=== PATIENT | female | born 1960 | race Caucasian/White ===

== ENCOUNTER 2018-08-11 15:58 | Emergency (ER) | payer OTHER, SELFPAY ==
[2018-08-11 16:39] LABS: Absolute Lymphocytes (CBC) 2.6 K/uL (0.7-4.9); Absolute Monocytes 0.4 K/uL (0.1-1.3); Absolute Neutrophil 3.8 K/uL (1.8-8.0); Basophils % 1.2 % (0-1.3); Eosinophils % 2.4 % (0-4.4); Lymphocytes % 37.1 % (15.3-44.8); Monocytes % 5.9 % (3.3-12.3); RBC Red Blood Cell Count 4.42 M/uL (3.86-4.86)
[2018-08-11 16:43] LABS: Protime INR 1.02
--- NOTE | 2018-08-11 16:46 | RAD REPORT ---
EXAM DESCRIPTION: CT - Head Brain Wo Cont - 08/11/2018 4:33 pm CLINICAL HISTORY: Seizure COMPARISON: CT head June 2007 TECHNIQUE: Axial 5 mm thick images of the head were obtained without IV contrast. All CT scans are performed using dose optimization technique as appropriate and may include automated exposure control or mA/KV adjustment according to patient size. FINDINGS: No intracranial hemorrhage, mass, edema or shift of mid-line structures. No acute infarcti on changes seen. No abnormal extra-axial fluid collections. Ventricles are normal. Mastoid air cells are clear. Mucosal thickening in the right maxillary sinus is present without air-f luid level. No acute bony findings. IMPRESSION: Negative noncontrast CT head for acute or significant finding. Right maxillary sinus mucosal thickening without air-fluid level.
[2018-08-11 16:48] LABS: ALT/SGPT 20 U/L (12-78); AST/SGOT 16 U/L (15-37); Albumin 3.2 g/dL (3.4-5.0); Alkaline Phosphatase 126 U/L (45-117); BUN Blood Urea Nitrogen 5 mg/dL (7-18); Bicarbonate 26 mmol/L (21-32); Bilirubin Direct < 0.1 mg/dL (0-0.2); Bilirubin Total 0.1 mg/dL (0.2-1.0); Glucose Level 118 mg/dL (74-106); Potassium 3.3 mmol/L (3.5-5.1); Protein, Total 6.7 g/dL (6.4-8.2); Sodium Level 143 mmol/L (136-145)
[2018-08-11] MEDS ORDERED: POTASSIUM CL SA 10 MEQ TAB PO ONE (17:34)
[2018-08-11 17:40] LABS: Urine Blood 1+ (NEG); Urine Glucose NEGATIVE (NEG); Urine Protein NEGATIVE (NEG); Urine pH 6.5 (5.0-7.0)
[2018-08-11 17:52] LABS: Barbiturates NEGATIVE (NEGATIVE); Benzodiazepines NEGATIVE (NEGATIVE); Cocaine NEGATIVE (NEGATIVE); METHAMPHETAM NEGATIVE (NEGATIVE); Methadone NEGATIVE (NEGATIVE); Opiates NEGATIVE (NEGATIVE); Phencyclidine NEGATIVE (NEGATIVE); THC Cannibis NEGATIVE (NEGATIVE)
--- NOTE | 2018-08-11 18:25 | ER ---
Nurse's Notes [facility] Name: Khadra Prescott Age: 57 yrs Sex: Female : 1960 Arrival Date: 08/11/2018 Time: 15:59 Bed 7 Private MD: Diagnosis: Seizure Presentation: 08/11 16:00 Presenting complaint: EMS states: Pt had witnessed sz at home for about 3 minutes, has la1 had one seizure in the past when she was withdrawing from her meds but she has not been on any lately. Pt was not post ictal on arrival. Pt currently awake, alert, oriented x4. Transition of care: patient was not received from another setting of care. Onset of symptoms was August 11, 2018. Risk Assessment: Do you want to hurt yourself or someone else? Patient reports no desire to harm self or others. Initial Sepsis Screen: Does the patient meet any 2 criteria? No. Patient's initial sepsis screen is negative. Does the patient have a suspected source of infection? No. Patient's initial sepsis screen is negative. Care prior to arrival: None. 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 - Social history:: Smoking status: Patient uses tobacco products, smokes one pack cigarettes per day. - Ebola Screening: : No symptoms or risks identified at this time. Screenin:05 Abuse screen: Denies threats or abuse. Denies injuries from another. Nutritional ca1 screening: No deficits noted. Tuberculosis screening: No symptoms or risk factors identified. Fall Risk Secondary diagnosis (15 points) seizures. Assessment: 16:05 General: Appears in no apparent distress. unkempt, Behavior is calm, cooperative, ca1 appropriate for age. Pain: Denies pain. Neuro: Level of Consciousness is awake, alert, obeys commands, Oriented to person, place, time, situation. Cardiovascular: Heart tones S1 S2 Capillary refill < 3 seconds Patient's skin is warm and dry. Respiratory: Airway is patent Respiratory effort is even, unlabored, Respiratory pattern is regular, symmetrical, Breath sounds are clear bilaterally. GI: Abdomen is round non-distended, Bowel sounds present X 4 quads. Abd is soft and non tender X 4 quads. Reports foreign body sensation down the throat. : No signs and/or symptoms were reported regarding the genitourinary system. EENT: No signs and/or symptoms were reported regarding the EENT system. Derm: Skin is intact, is healthy with good turgor, Skin is pink, warm \T\ dry. Musculoskeletal: Capillary refill < 3 seconds. 16:53 Reassessment: Patient appears in no apparent distress at this time. Patient and/or ca1 family updated on plan of care and expected duration. Pain level reassessed. Patient is alert, oriented x 3, equal unlabored respirations, skin warm/dry/pink. 17:53 Reassessment: Patient appears in no apparent distress at this time. Patient and/or ca1 family updated on plan of care and expected duration. Pain level reassessed. Patient is alert, oriented x 3, equal unlabored respirations, skin warm/dry/pink. Vital Signs: 16:02 BP 119 / 77; Pulse 89; Resp 18; Temp 98.7; Pulse Ox 98% on R/A; Weight 68.04 kg; Height la1 5 ft. 7 in. (170.18 cm); 16:53 BP 115 / 76; Pulse 76; Resp 17; Pulse Ox 95% on R/A; ca1 17:53 BP 111 / 73; Pulse 66; Resp 16; Pulse Ox 98% on R/A; ca1 16:02 Body Mass Index 23.49 (68.04 kg, 170.18 cm) la1 Hood Coma Score: 16:00 Eye Response: spontaneous(4). Verbal Response: oriented(5). Motor Response: obeys ca1 commands(6). Total: 15. 16:31 Eye Response: spontaneous(4). Verbal Response: oriented(5). Motor Response: obeys jr8 commands(6). Total: 15. ED Course: 15:59 Patient arrived in ED. la1 16:00 Christiano Turner PA is PHCP. jr8 16:01 Sen Jordan MD is Attending Physician. jr8 16:02 Triage completed. la1 16:02 Arm band placed on left wrist. la1 16:05 Patient has correct armband on for positive identification. Placed in gown. Bed in low ca1 position. Call light in reach. Side rails up X2. Seizure precautions initiated. monitoring manager on. Pulse ox on. NIBP on. Door closed. Noise minimized. Warm blanket given. 16:15 EKG done, by ED staff, reviewed by Christiano CONNORS. jb1 16:15 Maintain EMS IV. Dressing intact. Good blood return noted. Site clean \T\ dry. Gauge \T\ ca 1 site: g20 at . 16:23 Mariah Rome, RN is Primary Nurse. ca1 16:31 CT completed. Patient moved to CT via stretcher. Patient moved back from SD. bq 17:32 Urine collected: clean catch specimen, cloudy, [place] colored. jb1 18:22 Wilian Payne MD is Referral Physician. jr8 18:30 No provider procedures requiring assistance completed. ca1 18:30 IV discontinued, intact, bleeding controlled, No redness/swelling at site. Pressure ca1 dressing applied. Administered Medications: 17:15 Drug: Potassium Chloride 20 mEq Route: PO; ca1 18:15 Follow up: Response: No adverse reaction ca1 Outcome: 18:22 Discharge ordered by . jr8 18:36 Discharged to home ambulatory, with family. ca1 18:36 Condition: stable 18:36 Discharge instructions given to patient, family, Instructed on discharge instructions, follow up and referral plans. Demonstrated understanding of instructions, follow-up care. 18:36 Patient left the ED. ca1 Signatures: Charles Huggins jb1 Roxana Ledesma Josh, PA PA jr8 Walter Cristina, CHRISSY RN la1 Mariah Rome, CHRISSY RN ca1
--- NOTE | 2018-08-11 18:25 | EDPHYS ---
Physician Documentation [facility] Name: Khadra Prescott Age: 57 yrs Sex: Female : 1960 Arrival Date: 08/11/2018 Time: 15:59 Bed 7 Private MD: ED Physician Sen Jordan HPI: 08/11 16:31 This 57 yrs old Female presents to ER via EMS with complaints of Probable jr8 Seizure. 16:31 The patient presents after having a single isolated seizure, that lasted 2 minute(s). jr8 Character of seizure(s): Loss of consciousness: the patient experienced loss of consciousness, Motor activity: generalized, shaking all over, Incontinence: none, Apnea: the patient did not experience apnea, Circulation: the patient did not experience evidence of pulse disturbance, Eye movements: are unknown. Seizure onset: just prior to arrival. Context: the seizure(s) was witnessed, by family, occurred at home, occurred while the patient was at rest, Contributing factors: Sleep deprived. Has been on off of xanax 2 mg bars for about one week after being on them continuously for a while . Seizure Hx: one other seizure in past due to benzodiazepine withdrawal . The patient has experienced a previous episode. The patient has not recently seen a physician. 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 - Social history:: Smoking status: Patient uses tobacco products, smokes one pack cigarettes per day. - Ebola Screening: : No symptoms or risks identified at this time. ROS: 16:31 Eyes: Negative for injury, pain, redness, and discharge, ENT: Negative for injury, jr8 pain, and discharge, Neck: Negative for injury, pain, and swelling, Cardiovascular: Negative for chest pain, palpitations, and edema, Respiratory: Negative for shortness of breath, cough, wheezing, and pleuritic chest pain, Abdomen/GI: Negative for abdominal pain, nausea, vomiting, diarrhea, and constipation, Back: Negative for injury and pain, MS/Extremity: Negative for injury and deformity, Skin: Negative for injury, rash, and discoloration. 16:31 Neuro: Positive for seizure activity. Exam: 16:31 Constitutional: This is a well developed, well nourished patient who is awake, alert, jr8 and in no acute distress. Head/Face: Normocephalic, atraumatic. Eyes: Pupils equal round and reactive to light, extra-ocular motions intact. Lids and lashes normal. Conjunctiva and sclera are non-icteric and not injected. Cornea within normal limits. Periorbital areas with no swelling, redness, or edema. ENT: Nares patent. No nasal discharge, no septal abnormalities noted. Tympanic membranes are normal and external auditory canals are clear. Oropharynx with no redness, swelling, or masses, exudates, or evidence of obstruction, uvula midline. Mucous membranes moist. Neck: Trachea midline, no thyromegaly or masses palpated, and no cervical lymphadenopathy. Supple, full range of motion without nuchal rigidity, or vertebral point tenderness. No Meningismus. Cardiovascular: Regular rate and rhythm with a normal S1 and S2. No gallops, murmurs, or rubs. Normal PMI, no JVD. No pulse deficits. Respiratory: Lungs have equal breath sounds bilaterally, clear to auscultation and percussion. No rales, rhonchi or wheezes noted. No increased work of breathing, no retractions or nasal flaring. Abdomen/GI: Soft, non-tender, with normal bowel sounds. No distension or tympany. No guarding or rebound. No evidence of tenderness throughout. Back: No spinal tenderness. No costovertebral tenderness. Full range of motion. Skin: Warm, dry with normal turgor. Normal color with no rashes, no lesions, and no evidence of cellulitis. MS/ Extremity: Pulses equal, no cyanosis. Neurovascular intact. Full, normal range of motion. Neuro: Awake and alert, GCS 15, oriented to person, place, time, and situation. Cranial nerves II-XII grossly intact. Motor strength 5/5 in all extremities. Sensory grossly intact. Cerebellar exam normal. Normal gait. Vital Signs: 16:02 BP 119 / 77; Pulse 89; Resp 18; Temp 98.7; Pulse Ox 98% on R/A; Weight 68.04 kg; Height la1 5 ft. 7 in. (170.18 cm); 16:53 BP 115 / 76; Pulse 76; Resp 17; Pulse Ox 95% on R/A; ca1 17:53 BP 111 / 73; Pulse 66; Resp 16; Pulse Ox 98% on R/A; ca1 16:02 Body Mass Index 23.49 (68.04 kg, 170.18 cm) la1 Hood Coma Score: 16:00 Eye Response: spontaneous(4). Verbal Response: oriented(5). Motor Response: obeys ca1 commands(6). Total: 15. 16:31 Eye Response: spontaneous(4). Verbal Response: oriented(5). Motor Response: obeys jr8 commands(6). Total: 15. MDM: 16:01 Patient medically screened. jr8 18:21 Data reviewed: vital signs, nurses notes, lab test result(s), EKG, radiologic studies, [facility] CT scan, and as a result, I will discharge patient. Data interpreted: Pulse oximetry: on room air is 98 %. Interpretation: normal. Counseling: I had a detailed discussion with the patient and/or guardian regarding: the historical points, exam findings, and any diagnostic results supporting the discharge/admit diagnosis, lab results, radiology results, the need for outpatient follow up, a family practitioner, a neurologist, to return to the emergency department if symptoms worsen or persist or if there are any questions or concerns that arise at home. Response to treatment: the patient's symptoms have resolved after treatment. ED course: No seizures while in ED care. Will send home with close return precautions and f/u to see FM and neurology . 08/11 16:17 Order name: Acetaminophen 08/11 16:17 Order name: Basic Metabolic Panel 08/11 16:17 Order name: CBC with Diff 08/11 16:17 Order name: ETOH Level [facility] 08/11 16:17 Order name: Hepatic Function [facility] 08/11 16:17 Order name: PT-INR [facility] 08/11 16:17 Order name: Ptt, Activated 08/11 16:17 Order name: Salicylate [facility] 08/11 16:17 Order name: Urine Drug Screen [facility] 08/11 16:41 Order name: CBC with Automated Diff; Complete Time: 16:57 EDMS 08/11 16:47 Order name: Protime (+INR); Complete Time: 16:57 EDMS 08/11 16:47 Order name: PTT, Activated Partial Thromb; Complete Time: 16:57 EDMS 08/11 16:54 Order name: Basic Metabolic Panel; Complete Time: 16:57 EDMS 08/11 16:54 Order name: Liver (Hepatic) Function; Complete Time: 16:57 EDMS 08/11 16:17 Order name: EKG; Complete Time: 16:20 [facility] 08/11 16:17 Order name: EKG - Nurse/Tech; Complete Time: 16:24 jr8 08/11 16:17 Order name: IV Saline Lock; Complete Time: 16:24 8 08/11 16:17 Order name: Labs collected and sent; Complete Time: 16:25 8 08/11 16:17 Order name: Urine Dipstick-Ancillary (obtain specimen); Complete Time: 17:22 8 08/11 16:17 Order name: CT Head Brain wo Cont [facility] 08/11 16:54 Order name: Acetaminophen Level; Complete Time: 16:57 EDMS 08/11 16:54 Order name: Alcohol Serum/Plasma; Complete Time: 16:57 EDMS 08/11 16:55 Order name: CT; Complete Time: 16:57 EDMS 08/11 16:57 Order name: Salicylates Level; Complete Time: 16:58 EDMS 08/11 17:33 Order name: Urine Dipstick--Ancillary (enter results) ms 08/11 17:40 Order name: Urine Dipstick-Ancillary; Complete Time: 17:44 EDMS 08/11 17:52 Order name: Urine Drug Screen; Complete Time: 18:21 EDMS Administered Medications: 17:15 Drug: Potassium Chloride 20 mEq Route: PO; ca1 18:15 Follow up: Response: No adverse reaction ca1 Disposition: 08/11/18 18:22 Discharged to Home. Impression: Seizure . - Condition is Stable. - Discharge Instructions: Nonepileptic Seizures. - Medication Reconciliation Form, Thank You Letter, Antibiotic Education, Prescription Opioid Use form. - Follow up: Wilian Payne MD; When: 5 - 6 days; Reason: Recheck today's complaints, Continuance of care, Re-evaluation by your physician. - Problem is new. - Symptoms have improved. Addendum: 08/13/2018 03:38 Co-signature as Attending Physician, Sen Jordan MD I agree with the assessment and t w4 plan of care. Signatures: Dispatcher [employer] EDChristiano Blanc PA PA jr8 Walter Cristina RN RN la1 Sen Jordan MD MD tw4 Mariah Rome RN RN ca1 Corrections: (The following items were deleted from the chart) 08/11 18:36 18:22 08/11/2018 18:22 Discharged to Home. Impression: Seizure . Condition is Stable. ca1 Forms are Medication Reconciliation Form, Thank You Letter, Antibiotic Education, Prescription Opioid Use. Follow up: Wilian Payne; When: 5 - 6 days; Reason: Recheck today's complaints, Continuance of care, Re-evaluation by your physician. Problem is new. Symptoms have improved. jr8
--- NOTE | 2018-08-12 11:47 | EKG ---
Test Date: 2018-08-11 Test Time: 16:07:56 Temperature Inspector: MIMI MEASUREMENT RESULTS: Intervals: Rate: 75 OK: 124 QRSD: 104 QT: 394 QTc: 439 [place]: P: 61 OK: 124 QRS: 69 T: 55 INTERPRETIVE STATEMENTS: Normal sinus rhythm Nonspecific ST abnormality Abnormal ECG Compared to ECG 07/22/2007 19:10:25 ST (T wave) deviation now present Left ventricular hypertrophy no longer present Prolonged QT interval no longer present Electronically Signed On 08-12-18 11:43:08 [employer] by Ramy High
== END 2018-08-11 18:36 | disposition home or self-care (01) ==
LOC: ER 15:58
DX: R56.9 Unspecified convulsions (principal); F17.210 Nicotine dependence, cigarettes, uncomplicated; Z88.0 Allergy status to penicillin
CPT/HCPCS: 36415; 70450; 80048; 80076; 80307; 80320; 80329; 81003; 85025; 85610; 85730; 93005

== ENCOUNTER 2019-04-03 15:07 | Emergency (ER) | payer SELFPAY ==
--- OUTSIDE RECORDS SUMMARY | 2019-04-03 15:10 | XMS REPORT | Summary of Care ---
:1960 Author Organization [facility] - [facility] Address [address] [place] [address] Care Team Providers Name Role Phone Pcp, Patient Does Not Have A Primary Care Provider Reason for Referral MRI/CAT Scan (STAT) Status Reason Specialty Diagnoses / Referred By Referred To Procedures Contact Contact New Request Diagnostic Diagnoses Generalized abdominal pain [facility] Procedures CT ABDOMEN PELVIS W CONTRAST Dusty Lucero, DO [address] [place] [address] MRI/CAT Scan (STAT) Status Reason Specialty Diagnoses / Referred By Referred To Procedures Contact Contact New Request Diagnostic Diagnoses Generalized abdominal pain [facility] Procedures CT ABDOMEN PELVIS W CONTRAST Nic, Dusty, DO [address] [address] Reason for Visit Reason Comments Abdominal Pain Auth/Cert Status Reason Specialty Diagnoses / Referred By Referred To Procedures Contact Contact Emergency Medicine Ed-Emergency Dept [address] [place] [phone] Encounter Details Date Type Department Care Team Description 03/29/2019 - Emergency [facility], Generalized abdominal pain (Primary Dx); 03/30/2019 Department DO Dusty Vomiting and diarrhea; [address] [place] [address] Colitis; [place] [address] [place] [address] [facility] [phone] Allergies Active Allergy Reactions Severity Noted Date Comments Penicillins Unknown - See comments 03/29/2019 documented as of this encounter (statuses as of 03/30/2019) Medications Medication Sig Dispensed Refills Start Date End Date Status ciprofloxacin HCl 500 Take 1 tablet by 14 tablet 0 03/30/2019 04/06/2019 Active mg tabletIndications: mouth 2 (two) Generalized abdominal times daily for 7 pain days. metroNIDAZOLE 500 mg Take 1 tablet by 14 tablet 0 03/30/2019 04/06/2019 Active tabletIndications: mouth 2 (two) Generalized abdominal times daily for 7 pain days. dicyclomine (BENTYL) Take 1 tablet by 20 tablet 0 03/30/2019 Active 20 mg mouth 4 (four) tabletIndications: times daily as Colitis needed for Abdominal pain. documented as of this encounter (statuses as of 03/30/2019) Active Problems Not on filedocumented as of this encounter (statuses as of 03/30/2019) Social History Tobacco Use Types Packs/Day Years Used Date Never Assessed Sex Assigned at Date Recorded Not on file Job Start Date Occupation Industry Not on file Not on file Not on file Travel History Travel Start Travel End No recent travel history available. documented as of this encounter Last Filed Vital Signs Vital Sign Reading Time Taken Comments Blood Pressure 118/74 03/30/2019 5:17 AM CDT Pulse 68 03/30/2019 5:17 AM CDT Temperature 37.1 C (98.7 F) 03/30/2019 1:20 AM CDT Respiratory Rate 20 03/30/2019 5:17 AM CDT Oxygen Saturation 97% 03/30/2019 5:17 AM CDT Inhaled Oxygen Concentration - - Weight 56.7 kg (125 lb) 03/29/2019 10:51 PM CDT Height - - Body Mass Index - - documented in this encounter Discharge Instructions InstructionsDusty Walsh DO - 03/30/2019DIAGNOSIS 1. Abdominal pain 2. Vomiting and Diarrhea 3. Colitis 4. Uterine prolapse NO LIFE-THREATENING FINDINGS ON TODAY'S EXAM. PROCEDURES IN THE ER TODAY: None MEDICATIONS ADMINISTERED IN THE ER TODAY: Zofran, Morphine, Fluids YOUR PRESCRIPTIONS AND [id number] MEDICATION RECOMMENDATIONS: Zofran, Cipro, Flagyl SPECIAL CARE INSTRUCTIONS: None FOLLOW-UP RECOMMENDATIONS: RECOMMEND FOLLOW-UP WITH A PRIMARY CARE PROVIDER OR SPECIALIST IN 2-5 DAYS, ESPECIALLY IF NO IMPROVEMENT IN SYMPTOMS. TO FOLLOW-UP WITHIN THE [facility], TRY THESE OPTIONS (CLINIC APPOINTMENTS AVAILABLE ON [id number] BASIS): 1. SCHEDULE AN APPOINTMENT ONLINE AT WWW[facility] 2. OR CALL THE [facility] AT OR 3. OR CALL YOUR [facility] PHYSICIAN'S OFFICE DIRECTLY IF YOU ARE ALREADY AN ESTABLISHED [facility] PATIENT. OR, YOU MAY FOLLOW-UP WITH A PROVIDER OF YOUR CHOICE, SUCH : 1. A PHYSICIAN OF YOUR CHOICE 2. [facility], . LOCATIONS IN [facility] 3. [facility], [address], [place]; [phone] RETURN TO ER FOR WORSENING OF SYMPTOMS, INCREASED PAIN, FEVERS, PERSISTENT VOMITING, OR ANY OTHER CONCERNS. AttachmentsThe following attachments cannot be sent through Care Everywhere.Colitis, Understanding (Japanese)documented in this encounter Progress Notes Annita Sosa MD - 03/30/2019 4:45 AM CDTSurgery Chief Note Brief History: Khadra Prescott is a 58 year old female who presented to the ED w/ a 1 mo history of intermittent diarrhea and abdominal pain and 3 day history of vomiting. Pt found to have possibletransient intussusception on CT scan in ED, for which we were consulted. Pertinent Vitals and Physical Exam: BP 115/64 (Patient Position: Supine) | Pulse 69 | Temp 37.1 C (98.7 F) ( Oral) | Resp 20 | Wt56.7 kg (125 lb) | SpO2 96% AAO, NAD Abdomen soft, NT, ND, no rebound, guarding, or peritonitis Pertinent Labs/Imaging: WBC 7.72 IMPRESSION Fluid-filled small bowel, and diffuse colonic hyperdense and edematous bowel wall are consistent with enteritis/colitis. Suspected transient intussusception in the left lower quadrant. Cholecystectomy with reservoir phenomena manifested by common bile duct dilation and left intrahepatic biliary ductal dilation. Anteroinferior uterine prolapse. Assessment/Plan: 58 year old F with enteritis. Intussusception on CT scan likely just transient , and related to enteritis. WBC WNL and non toxic appearing. -- No need for surgical intervention -- Management of enteritis, abdominal pain, etc. As per ED faculty Please see full note by surgery team. Discussed with Dr. Danielle (surgery faculty). Annita Sosa MD PGY-4, General Surgery Pager: documented in this encounter Plan of Treatment Name Type Priority Associated Diagnoses Date/Time CT ABDOMEN PELVIS W IMAGING STAT Generalized abdominal 03/30/2019 3:45 AM CONTRAST pain CDT Health Maintenance Due Date Last Done Comments HEPATITIS C (HCV) SCREEN 1960 DTaP,Tdap,and Td Vaccines (1 - 1981 Tdap) PAP SMEAR 1983 MAMMOGRAM 2002 COLONOSCOPY 2012 Zoster Recombinant Vaccine 2012 (SHINGRIX) (1 of 2) INFLUENZA VACCINE (#1) 2019 PNEUMOCOCCAL 0-64 YEARS COMBINED Aged Out No longer eligible based on SERIES patient's age to complete this topic documented as of this encounter Procedures Procedure Name Priority Date/Time Associated Comments Diagnosis COMP. METABOLIC STAT 03/30/2019 1:58 Generalized Results for this PANEL (63870) AM CDT abdominal pain procedure are in the results section. TEST, STAT Add-On 03/30/2019 1:58 Generalized Results for this SERUM AM CDT abdominal pain procedure are in the results section. CBC WITH STAT 03/30/2019 12:16 Generalized Results for this DIFFERENTIAL AM CDT abdominal pain procedure are in the results section. URINALYSIS STAT 03/30/2019 12:16 Generalized Results for this AM CDT abdominal pain procedure are in the results section. CBC WITH DIFF Routine 03/30/2019 12:16 Generalized Results for this AM CDT abdominal pain procedure are in the results section. LIPASE STAT 03/30/2019 12:16 Generalized Results for this AM CDT abdominal pain procedure are in the results section. POCT TEST Routine 03/29/2019 11:56 Generalized Results for this PM CDT abdominal pain procedure are in the results section. documented in this encounter Results TEST, SERUM (03/30/2019 1:58 AM CDT) PREG SERUM Negative [facility] Specimen Blood - VENOUS Narrative Performed At Less than 10 IU/L.If low titer or ectopic is [facility] suspected, resubmit specimen in 48-72 hours. Performing Organization Address City/State/Zipcode Phone Number [facility] CLIA: [id number], [address] [facility] [place] [address] [phone] [facility] Complete Metabolic Panel (03/30/2019 1:58 AM CDT) NA 139 135 - 145 [facility] mmol/L SERVICES K 3.0 (L) 3.5 - 5.0 [facility] mmol/L SERVICES CL 110 (H) 98 - 108 mmol/L [facility] CO2 TOTAL 24 23 - 31 mmol/L [facility] AGAP 5 2 - 16 [facility] BUN 6 (L) 7 - 23 mg/dL [facility] GLUCOSE 84 70 - 110 mg/dL [facility] CREATININE 0.59 0.50 - 1.04 [facility] mg/dL SERVICES TOTAL BILI 0.3 0.1 - 1.1 mg/dL [facility] CALCIUM 8.2 (L) 8.6 - 10.6 [facility] mg/dL SERVICES T PROTEIN 5.4 (L) 6.3 - 8.2 g/dL [facility] ALBUMIN 3.0 (L) 3.5 - 5.0 g/dL [facility] ALK PHOS 116 34 - 122 U/L [facility] ALT(SGPT) 37 9 - 51 U/L [facility] AST(SGOT) 24 13 - 40 U/L [facility] eGFR Calculation 105.4 mL/min/1.73m2 [facility] (Non- SERVICES Belizean) eGFR Calculation 127.8 mL/min/1.73m2 [facility] () SERVICES Specimen Blood - VENOUS Narrative Performed At Association of Glomerular Filtration Rate (GFR) and Staging [facility] of Kidney Disease* + + + + | GFR (mL/min/1.73 m2)| With Kidney Damage|Without Kidney Damage + + + + |>90|Stage one| Normal + + + + |60-89|Stage two| Decreased GFR + + + + |30-59|Stage three| Stage three + + + + |15-29|Stage four | Stage four + + + + |<15 (or dialysis)|Stage five | Stage five + + + + *Each stage assumes the associated GFR level has been in effect for at least three months.Stages 1 to 5, with or without kidney disease, indicate chronic kidney disease. Notes: Determination of stages one and two (with eGFR >59mL/min/1.73 m2) requires estimation of kidney damage for at least three months as defined by structural or functional abnormalities of the kidney, manifested by either: Pathological abnormalities or Markers of kidney damage (including abnormalities in the composition of the blood or urine or abnormalities in imaging tests). Performing Organization Address City/State/Zipcode Phone Number [facility] CLIA: [id number], [address] [place] [address] [facility] CBC WITH DIFFERENTIAL (03/30/2019 12:16 AM CDT) WBC 7.72 4.30 - 11.10 [facility] 10*3/L SERVICES RBC 4.83 3.93 - 5.25 [facility] 10*6/L SERVICES HGB 15.3 (H) 11.6 - 15.0 [facility] g/dL SERVICES HCT 45.8 (H) 35.7 - 45.2 % [facility] MCV 94.8 80.6 - 95.5 [facility] fL SERVICES MCH 31.7 25.9 - 32.8 [facility] pg SERVICES MCHC 33.4 31.6 - 35.1 [facility] g/dL SERVICES RDW-SD 49.5 39.0 - 49.9 [facility] fL SERVICES RDW-CV 14.2 12.0 - 15.5 % [facility] PLT 227 166 - 358 [facility] 10*3/L SERVICES MPV 11.9 9.5 - 12.9 fL [facility] IPF % 7.2Comment: Platelet 1.3 - 7.7 % [facility] count measured by SERVICES fluorescence method. NRBC/100 WBC 0.0 0.0 - 10.0 [facility] /100 WBCs SERVICES NRBC x10^3 <0.01 10*3/L [facility] GRAN MAT (NEUT) % 58.8 % [facility] IMM GRAN % 1.80 % [facility] LYMPH % 30.3 % [facility] MONO % 6.6 % [facility] EOS % 1.2 % [facility] BASO % 1.3 % [facility] GRAN MAT 4.54 1.88 - 7.09 [facility] x10^3(ANC) 10*3/uL SERVICES IMM GRAN x10^3 0.14 (H) 0.00 - 0.06 [facility] 10*3/uL SERVICES LYMPH x10^3 2.34 1.32 - 3.29 [facility] 10*3/uL SERVICES MONO x10^3 0.51 0.33 - 0.92 [facility] 10*3/uL SERVICES EOS x10^3 0.09 0.03 - 0.39 [facility] 10*3/uL SERVICES BASO x10^3 0.10 (H) 0.01 - 0.07 [facility] 10*3/uL SERVICES Specimen Blood - VENOUS Performing Organization Address [facility] Phone Number [facility] CLIA: [id number], [address] [place] [address] [phone] [facility] Urinalysis (03/30/2019 12:16 AM CDT) APPEARANCE Clear Clear [facility] COLOR Straw (A) Yellow [facility] PH 6.0 4.8 - 8.0 [facility] SP GRAVITY 1.004 1.003 - 1.030 [facility] GLU U QUAL Normal Normal [facility] BLOOD 2+ (A) Negative [facility] KETONES Negative Negative [facility] PROTEIN Negative Negative [facility] UROBILIN Normal Normal [facility] BILIRUBIN Negative Negative [facility] NITRITE Negative Negative [facility] LEUK TASHIA Negative Negative [facility] RBC/HPF 1 0 - 3 HPF [facility] WBC/HPF <1 0 - 5 HPF [facility] BACTERIA Few (A) Negative [facility] SQ EPITH <1 <=2 HPF [facility] Specimen Urine - URINE, CLEAN CATCH Performing Organization Address [facility]/Zipcode Phone Number [facility] CLIA: [id number], [address] [place] [phone] [employer] Lipase, Serum (03/30/2019 12:16 AM CDT) LIPASE 76Comment: Hemolyzed 0 - 220 U/L [facility] specimen SERVICES Specimen Blood - VENOUS Performing Organization Address City/State/Zipcode Phone Number [facility] CLIA: [id number], [address] [place] [address] [phone] [facility] POCT Test (03/29/2019 11:56 PM CDT) POCT PREG negative On board controls acceptable present with C Line POCT PREG LOT # [id number] POCT PREG TEST DATE 01-20-2020 Specimen Urine - URINE, CLEAN CATCH documented in this encounter Visit Diagnoses Diagnosis Generalized abdominal pain - Primary Abdominal pain, generalized Vomiting and diarrhea Vomiting alone Colitis Other and unspecified noninfectious gastroenteritis and colitis Uterine prolapse Uterine prolapse without mention of vaginal wall prolapse documented in this encounter Administered Medications Medication Order MAR Action Action Date Dose Rate Site sodium chloride (NS) injection 5 mL 5 mL, Intravenous, PRN, Starting 03/29/19 at 2315, Until Discontinued, Routine, IV line flushing Medication Order MAR Action Action Date Dose Rate Site iohexol (OMNIPAQUE 350 BULK-150 Given 03/30/2019 3:40 AM CDT 120 mL mL) injection 120 mL 120 mL, Intravenous, ONCE, 1 dose, 03/30/19 at 0400, Routine morpHINE injection 4 mg Given 03/30/2019 12:56 AM CDT 4 mg 4 mg, Slow IV Push, ONCE, 1 dose, 03/30/19 at 0130, STAT ondansetron (ZOFRAN (PF)) injection 4 mg Given 03/30/2019 12:56 AM CDT 4 mg 4 mg, Slow IV Push, ONCE, 1 dose, 03/30/19 at 0130, FAITH documented in this encounter"
--- OUTSIDE RECORDS SUMMARY | 2019-04-03 15:10 | XMS REPORT ---
:1960 [facility] Address [address] [place] [address] Dr. Manley [address] [place] [id number] Care Team Providers Name Role Phone Unavailable Unavailable Unavailable Problems This patient has no known problems. Allergies, Adverse Reactions, Alerts This patient has no known allergies or adverse reactions. Medications This patient has no known medications.
--- NOTE | 2019-04-03 16:09 | RAD REPORT ---
EXAM DESCRIPTION: CT - Head Brain Wo Cont - 04/03/2019 3:49 pm CLINICAL HISTORY: seizure COMPARISON: 07/2018 TECHNIQUE: Computed axial tomography of the head was obtained. IV contrast was not requested. All CT scans are performed using dose optimization technique as appropriate and may include automated exposure control or mA/KV adjustment according to patient size. FINDINGS: An intracranial bleed is not seen . The ventricles are normal in caliber. No extra-axial fluid collection is noted. Fluid within the sinuses/ mastoids is not seen. IMPRESSION: No acute intracranial abnormality is seen. If patient's symptoms persist MRI of the bra in would be recommended.
[2019-04-03 16:10] LABS: Protime INR 0.96
[2019-04-03 16:12] LABS: Absolute Lymphocytes (CBC) 2.6 K/uL (0.7-4.9); Basophils % 1.1 % (0-1.3); Hematocrit 39.1 % (36.0-45.0); Lymphocytes % 33.9 % (15.3-44.8); MPV 10.8 fL (7.6-11.3); RBC Red Blood Cell Count 3.99 M/uL (3.86-4.86)
[2019-04-03 16:16] LABS: ALT/SGPT 22 U/L (12-78); AST/SGOT 18 U/L (15-37); Albumin 3.4 g/dL (3.4-5.0); Alkaline Phosphatase 160 U/L (45-117); BUN Blood Urea Nitrogen 6 mg/dL (7-18); Bicarbonate 26 mmol/L (21-32); Bilirubin Direct < 0.1 mg/dL (0-0.2); Bilirubin Total 0.2 mg/dL (0.2-1.0); Glucose Level 102 mg/dL (74-106); Potassium 3.3 mmol/L (3.5-5.1); Protein, Total 6.4 g/dL (6.4-8.2); Sodium Level 141 mmol/L (136-145)
[2019-04-03] MEDS ORDERED: POTASSIUM CL SA 10 MEQ TAB PO ONE (16:31)
--- NOTE | 2019-04-03 17:24 | ER ---
Nurse's Notes [facility] Name: Khadra Prescott Age: 58 yrs Sex: Female : 1960 Arrival Date: 04/03/2019 Time: 15:16 Bed 24 Private MD: Diagnosis: Laceration without foreign body of scalp;Non epileptic seizure Presentation: 04/03 15:17 Presenting complaint: EMS states: patient had a witnessed seizure at [facility] where she mg2 is working. she was having tonic clonic seizure for 3 min and LOC for 2 mins and combative when she woke up. BGL- 92 mg/dl. she sustained laceration on her scalp and bruise on the right orbit. she had seizure 3 years ago and she is not on maintenance for seizure. Transition of care: patient was not received from another setting of care. Onset of symptoms was April 03, 2019 at 02:30. Risk Assessment: Do you want to hurt yourself or someone else? Patient reports no desire to harm self or others. Initial Sepsis Screen: Does the patient meet any 2 criteria? No. Patient's initial sepsis screen is negative. Does the patient have a suspected source of infection? No. Patient's initial sepsis screen is negative. Care prior to arrival: None. 15:17 Method Of Arrival: EMS: [facility] mg2 15:17 Acuity: MARLENE 3 mg2 Historical: - Allergies: 15:21 PENICILLINS; mg2 - Home Meds: 15:21 Ambien 10 mg Oral tab 1 tab once daily [Active]; gabapentin 300 mg Oral cap 1 cap 3 mg2 times per day [Active]; Lorazepam Oral [Active]; - PMHx: 15:21 Fibromyalgia; Seizures; mg2 - PSHx: 15:21 Tubal ligation; Carpal Tunnel Repair; Cholecystectomy; mg2 - Immunization history:: Flu vaccine status is unknown. - Social history:: Smoking status: Patient uses tobacco products, smokes one pack cigarettes per day. - Ebola Screening: : No symptoms or risks identified at this time. Screenin:23 Abuse screen: Denies threats or abuse. Denies injuries from another. Nutritional mg2 screening: No deficits noted. Tuberculosis screening: No symptoms or risk factors identified. Fall Risk IV access (20 points). Assessment: 15:22 General: Appears in no apparent distress. comfortable, Behavior is calm, cooperative. mg2 Pain: Denies pain. Neuro: Level of Consciousness is awake, alert, obeys commands, Oriented to person, place, time, situation. Cardiovascular: Capillary refill < 3 seconds Patient's skin is warm and dry. Respiratory: Airway is patent Respiratory effort is even, unlabored, Respiratory pattern is regular, symmetrical. GI: No signs and/or symptoms were reported involving the gastrointestinal system. : No signs and/or symptoms were reported regarding the genitourinary system. EENT: No signs and/or symptoms were reported regarding the EENT system. EENT: bruising in the right eye. Derm: Skin is healthy with good turgor, Skin is pink, warm \T\ dry. normal, Wound noted scalp Wound is 1 inch length. Musculoskeletal: Circulation, motion, and sensation intact. Capillary refill < 3 seconds. Vital Signs: 15:20 Weight 58.97 kg; Height 5 ft. 6 in. (167.64 cm); Pain 0/10; mg2 15:40 BP 116 / 74; Pulse 77; Resp 18; Temp 98.6; Pulse Ox 96% on R/A; mg2 16:42 BP 105 / 77; Pulse 63; Resp 18; Pulse Ox 97% on R/A; mg2 17:30 BP 110 / 70; Pulse 69; Resp 18; Temp 98; Pulse Ox 100% on R/A; mg2 15:20 Body Mass Index 20.98 (58.97 kg, 167.64 cm) mg2 ED Course: 15:16 Patient arrived in ED. mg2 15:18 Christiano Turner PA is PHCP. jr8 15:18 Duc De La Cruz MD is Attending Physician. jr8 15:20 Triage completed. mg2 15:22 Arm band placed on. mg2 15:23 Patient has correct armband on for positive identification. campus monitor on. Pulse mg2 ox on. NIBP on. Door closed. 15:24 Walter Smith, CHRISSY is Primary Nurse. mg2 15:38 Radiology exam delayed due to pt getting labs drawn at this time. mw3 15:40 Inserted saline lock: 22 gauge in right forearm, using aseptic technique. Blood mg2 collected. by [place] major case detective. 15:44 EKG done, by maintenance technician. reviewed by Christiano CONNORS. sm3 15:[address] mw3 15:48 CT completed. Patient tolerated procedure well. Patient moved back from CT. mw3 15:50 CT Head Brain wo Cont In Process Unspecified. EDMS 17:43 IV discontinued, intact, bleeding controlled, No redness/swelling at site. Pressure mg2 dressing applied. 17:44 Assist provider with laceration repair on scalp that was 2.5 cm. or less using mazin. mg2 Set up tray. Performed by Christiano CONNORS Patient tolerated well. Administered Medications: 16:31 Drug: Potassium Chloride 20 mEq Route: PO; mg2 17:06 Follow up: Response: No adverse reaction mg2 Outcome: 17:23 Discharge ordered by . danie 17:44 Discharged to home ambulatory, with family. mg2 17:44 Condition: stable 17:44 Discharge instructions given to patient, family, Instructed on discharge instructions, follow up and referral plans. wound care, Demonstrated understanding of instructions, follow-up care, wound care. 17:45 Patient left the ED. mg2 Signatures: Dispatcher [employer] EDTN Christiano Turner PA PA jr8 Walter Smith RN RN mg2 Sondra Brewer 3 Karlee Reagan mw3 Corrections: (The following items were deleted from the chart) 17:44 15:23 No provider procedures requiring assistance completed. mg2 mg2
--- NOTE | 2019-04-03 17:24 | EDPHYS ---
Physician Documentation [facility] Name: Khadra Prescott Age: 58 yrs Sex: Female : 1960 Arrival Date: 04/03/2019 Time: 15:16 Bed 24 Private MD: ED Physician Duc De La Cruz HPI: 04/03 15:31 This 58 yrs old Female presents to ER via EMS with complaints of seizure. jr8 15:31 The patient presents after having a single isolated seizure, that lasted 30 second(s). jr8 Character of seizure(s): Loss of consciousness: the patient experienced loss of consciousness, Motor activity: generalized, Incontinence: none, Apnea: the patient did not experience apnea, Circulation: the patient did not experience evidence of pulse disturbance, Eye movements: are unknown. Seizure onset: just prior to arrival. Context: the seizure(s) was witnessed, by co-worker(s), occurred at work, occurred while the patient was standing, Contributing factors: missed recent doses of medications. Seizure Hx: 1-2 times in past from benzo withdrawal . Associated injury: Head/face: contusion, laceration. Current symptoms: Currently, the patient is not experiencing any symptoms, the patient feels back to baseline, no decreased level of consciousness, no confusion, no dysphasia, no headache, no paralysis, no visual changes. The patient has experienced similar episodes in the past, a few times. The patient has not recently seen a physician. Patient stated that she was at work and started to get dizzy. Woke up on the floor. Co-worker reported general tonic-clonic motion. History of seizures in past from not taking her benzodiazepines. Stated that she has been on Ativan 1mg TID pretty consistently for some time. Last dose 3 days ago. Stopped because she didn't feel like she needed it . Historical: - Allergies: 15:21 PENICILLINS; mg2 - Home Meds: 15:21 Ambien 10 mg Oral tab 1 tab once daily [Active]; gabapentin 300 mg Oral cap 1 cap 3 mg2 times per day [Active]; Lorazepam Oral [Active]; - PMHx: 15:21 Fibromyalgia; Seizures; mg2 - PSHx: 15:21 Tubal ligation; Carpal Tunnel Repair; Cholecystectomy; mg2 - Immunization history:: Flu vaccine status is unknown. - Social history:: Smoking status: Patient uses tobacco products, smokes one pack cigarettes per day. - Ebola Screening: : No symptoms or risks identified at this time. ROS: 15:31 Eyes: Negative for injury, pain, redness, and discharge, ENT: Negative for injury, jr8 pain, and discharge, Neck: Negative for injury, pain, and swelling, Cardiovascular: Negative for chest pain, palpitations, and edema, Respiratory: Negative for shortness of breath, cough, wheezing, and pleuritic chest pain, Abdomen/GI: Negative for abdominal pain, nausea, vomiting, diarrhea, and constipation, Back: Negative for injury and pain, MS/Extremity: Negative for injury and deformity. 15:31 Skin: Positive for laceration(s), of the scalp. 15:31 Neuro: Positive for seizure activity. Exam: 15:31 Eyes: Pupils equal round and reactive to light, extra-ocular motions intact. Lids and jr8 lashes normal. Conjunctiva and sclera are non-icteric and not injected. Cornea within normal limits. Periorbital areas with no swelling, redness, or edema. ENT: Nares patent. No nasal discharge, no septal abnormalities noted. Tympanic membranes are normal and external auditory canals are clear. Oropharynx with no redness, swelling, or masses, exudates, or evidence of obstruction, uvula midline. Mucous membranes moist. Neck: Trachea midline, no thyromegaly or masses palpated, and no cervical lymphadenopathy. Supple, full range of motion without nuchal rigidity, or vertebral point tenderness. No Meningismus. Cardiovascular: Regular rate and rhythm with a normal S1 and S2. No gallops, murmurs, or rubs. Normal PMI, no JVD. No pulse deficits. Respiratory: Lungs have equal breath sounds bilaterally, clear to auscultation and percussion. No rales, rhonchi or wheezes noted. No increased work of breathing, no retractions or nasal flaring. Abdomen/GI: Soft, non-tender, with normal bowel sounds. No distension or tympany. No guarding or rebound. No evidence of tenderness throughout. Back: No spinal tenderness. No costovertebral tenderness. Full range of motion. Skin: Warm, dry with normal turgor. Normal color with no rashes, no lesions, and no evidence of cellulitis. MS/ Extremity: Pulses equal, no cyanosis. Neurovascular intact. Full, normal range of motion. Neuro: Awake and alert, GCS 15, oriented to person, place, time, and situation. Cranial nerves II-XII grossly intact. Motor strength 5/5 in all extremities. Sensory grossly intact. Cerebellar exam normal. Normal gait. 15:31 Head/face: Patient has 3 cm laceration to top of head. Mild swelling and bruising to right supraorbital ridge and to nasal bridge without epistaxis or deviation . Vital Signs: 15:20 Weight 58.97 kg; Height 5 ft. 6 in. (167.64 cm); Pain 0/10; mg2 15:40 BP 116 / 74; Pulse 77; Resp 18; Temp 98.6; Pulse Ox 96% on R/A; mg2 16:42 BP 105 / 77; Pulse 63; Resp 18; Pulse Ox 97% on R/A; mg2 17:30 BP 110 / 70; Pulse 69; Resp 18; Temp 98; Pulse Ox 100% on R/A; mg2 15:20 Body Mass Index 20.98 (58.97 kg, 167.64 cm) mg2 Laceration: 17:20 Wound Repair of 3cm ( 1.2in ) subcutaneous laceration to scalp. Linear shaped.. Minimal jr8 bleeding noted.. Distal neuro/vascular/tendon intact. Wound prep: Moderate cleansing with hibiclenz, Wound irrigation with saline, Wound explored extensively, Copious irrigation. Skin closed with 3 alis Alis using staple gun. Patient tolerated well. MDM: 15:24 Patient medically screened. jr8 17:20 Data reviewed: vital signs, nurses notes, lab test result(s), EKG, radiologic studies, jr8 CT scan, and as a result, I will discharge patient. Data interpreted: Pulse oximetry: on room air is 97 %. Interpretation: normal. Counseling: I had a detailed discussion with the patient and/or guardian regarding: the historical points, exam findings, and any diagnostic results supporting the discharge/admit diagnosis, lab results, radiology results, the need for outpatient follow up, a family practitioner, to return to the emergency department if symptoms worsen or persist or if there are any questions or concerns that arise at home. Response to treatment: the patient's symptoms have resolved after treatment. ED course: Discussed with patient that cause of seizure was most likely secondary to abrupt cessation of benzodiazepines. No other acute findings on labs, CT, or ECG. To f/o with PCP and will need alis out in seven days . 04/03 15:24 Order name: Basic Metabolic Panel; Complete Time: 16:16 04/03 15:24 Order name: CBC with Diff; Complete Time: 16:15 04/03 15:24 Order name: ETOH Level; Complete Time: 16:27 04/03 15:24 Order name: Hepatic Function; Complete Time: 16:16 04/03 15:24 Order name: PT-INR; Complete Time: 16:21 04/03 15:24 Order name: Ptt, Activated; Complete Time: 16:21 04/03 15:24 Order name: Urine Drug Screen; Complete Time: 17:45 04/03 15:24 Order name: EKG; Complete Time: 15:25 04/03 15:24 Order name: EKG - Nurse/Tech; Complete Time: 15:36 04/03 15:24 Order name: IV Saline Lock; Complete Time: 15:40 04/03 15:24 Order name: Magnesium; Complete Time: 16:16 04/03 15:24 Order name: CT Head Brain wo Cont; Complete Time: 16:15 04/03 17:36 Order name: Urine Dipstick--Ancillary (enter results) bd 04/03 15:24 Order name: Labs collected and sent; Complete Time: 15:40 04/03 15:24 Order name: Urine Dipstick-Ancillary (obtain specimen); Complete Time: 17:06 Administered Medications: 16:31 Drug: Potassium Chloride 20 mEq Route: PO; mg2 17:06 Follow up: Response: No adverse reaction mg2 Disposition: 18:44 Co-signature as Attending Physician, Duc De La Cruz MD. ma2 Disposition: 04/03/19 17:23 Discharged to Home. Impression: Laceration without foreign body of scalp, Non epileptic seizure . - Condition is Stable. - Discharge Instructions: Laceration Care, Adult, Nonepileptic Seizures. - Work release form, Medication Reconciliation Form, Thank You Letter, Antibiotic Education, Prescription Opioid Use form. - Follow up: Private Physician; When: 1 week; Reason: Wound Recheck, Recheck today's complaints, Continuance of care, Staple/Suture removal, Re-evaluation by your physician. - Problem is new. - Symptoms have improved. Signatures: Dispatcher [employer] EDMS Christiano Turner PA PA jr8 Duc De La Cruz MD MD ma2 Walter Smith, RN RN mg2 Corrections: (The following items were deleted from the chart) 17:45 17:23 04/03/2019 17:23 Discharged to Home. Impression: Laceration without foreign body mg2 of scalp; Non epileptic seizure . Condition is Stable. Forms are Medication Reconciliation Form, Thank You Letter, Antibiotic Education, Prescription Opioid Use. Follow up: Private Physician; When: 1 week; Reason: Wound Recheck, Recheck today's complaints, Continuance of care, Staple/Suture removal, Re-evaluation by your physician. Problem is new. Symptoms have improved. jr8
[2019-04-03 17:30] LABS: Barbiturates NEGATIVE (NEGATIVE); Benzodiazepines NEGATIVE (NEGATIVE); Cocaine NEGATIVE (NEGATIVE); METHAMPHETAM NEGATIVE (NEGATIVE); Methadone NEGATIVE (NEGATIVE); Opiates NEGATIVE (NEGATIVE); Phencyclidine NEGATIVE (NEGATIVE); THC Cannibis NEGATIVE (NEGATIVE)
[2019-04-03 18:09] VITALS: BP 110/70; TEMP 98; O2SAT 100
[2019-04-03 18:22] LABS: Urine Blood 1+ (NEG); Urine Glucose 1+ (NEG); Urine Protein NEGATIVE (NEG); Urine Specific Gravity <1.005 (1.005-1.030)
--- NOTE | 2019-04-04 07:40 | EKG ---
Test Date: 2019-04-03 Test Time: 15:21:42 Oracle Programmer: JAMEY MEASUREMENT RESULTS: Intervals: Rate: 80 MN: 108 QRSD: 84 QT: 380 QTc: 438 Charlton: P: 45 MN: 108 QRS: 57 T: 54 INTERPRETIVE STATEMENTS: Sinus rhythm with short MN Nonspecific ST abnormality Abnormal ECG Compared to ECG 08/11/2018 16:07:56 Short MN interval now present ST (T wave) deviation still present Electronically Signed On 04-04-19 07:38:04 CDT by Ramy High
== END 2019-04-03 17:45 | disposition home or self-care (01) ==
LOC: ER 15:07
PROC: 0JQ00ZZ Repair Scalp Subcutaneous Tissue and Fascia, Open Approach (ICD-10-PCS; principal; 2019-04-03)
DX: R56.9 Unspecified convulsions (principal); S01.01XA Laceration without foreign body of scalp, initial encounter; W18.39XA Other fall on same level, initial encounter; Y93.89 Activity, other specified; Y92.9 Unspecified place or not applicable; F17.210 Nicotine dependence, cigarettes, uncomplicated
CPT/HCPCS: 36415; 70450; 80048; 80076; 80307; 80320; 81003; 83735; 85025; 85610; 85730; 93005; 99285

== ENCOUNTER 2019-08-06 13:01 | Emergency (ER) | payer SELFPAY ==
--- OUTSIDE RECORDS SUMMARY | 2019-08-06 13:02 | XMS REPORT ---
:1960 [facility] [address] [place] [address] Dr. Manley [address] [place] [id number] Care Team Providers Name Role Phone Unavailable Unavailable Unavailable Problems This patient has no known problems. Allergies, Adverse Reactions, Alerts This patient has no known allergies or adverse reactions. Medications This patient has no known medications.
--- NOTE | 2019-08-06 14:10 | ER ---
Nurse's Notes [facility] Name: Khadra Prescott Age: 58 yrs Sex: Female : 1960 Arrival Date: 08/06/2019 Time: 13:07 Bed 17 Private MD: Diagnosis: Epilepsy and recurrent seizures Presentation: 08/06 13:08 Presenting complaint: EMS states: SZ-LIKE ACTIVITY TRIGGERED BY LACK OF XANAX AND bp AMBIEN. Transition of care: patient was not received from another setting of care. Onset of symptoms is unknown. Risk Assessment: Do you want to hurt yourself or someone else? Patient reports no desire to harm self or others. Initial Sepsis Screen: Does the patient meet any 2 criteria? No. Patient's initial sepsis screen is negative. Does the patient have a suspected source of infection? No. Patient's initial sepsis screen is negative. Note NO POST-ICTAL PERIOD OR INCONTINENCE NOTED. Care prior to arrival: IV initiated. 20 GA, in the right forearm. 13:08 Method Of Arrival: EMS: [facility] bp 13:08 Acuity: MARLENE 3 bp Historical: - Allergies: 13:10 PENICILLINS; bp - Home Meds: 13:10 Ambien 10 mg Oral tab 1 tab once daily [Active]; Xanax Oral [Active]; bp - PMHx: 13:10 Seizures; Fibromyalgia; bp - Immunization history:: Adult Immunizations unknown. - Social history:: Smoking status: unknown. - Ebola Screening: : No symptoms or risks identified at this time. Vital Signs: 13:14 BP 132 / 81; Pulse 79; Resp 17; Temp 98; Pulse Ox 98% ; Weight 58.97 kg; Height 5 ft. 7 bp in. (170.18 cm); 13:14 Body Mass Index 20.36 (58.97 kg, 170.18 cm) bp ED Course: 13:07 Patient arrived in ED. bp 13:09 Triage completed. bp 13:13 Eladio Monroe, CHRISSY is Primary Nurse. bp 13:14 Arm band placed on. bp 13:15 Gerson Garibay MD is Attending Physician. moustapha 13:23 Mariah Rome, CHRISSY is Primary Nurse. ca1 14:16 No provider procedures requiring assistance completed. ss Administered Medications: No medications were administered Outcome: 14:16 Eloped from patient exam room, after seeing physician ss 14:16 unknown 14:17 Patient left the ED. ss Signatures: Gerson Garibay MD MD cha Smirch, Shelby, RN RN ss Eladio Monroe, RN RN Mariah Newsome RN RN ca1
[2019-08-06 14:30] VITALS: BP 132/81; TEMP 98; O2SAT 98
== END 2019-08-06 14:17 | disposition left against medical advice (07) ==
LOC: ER 13:01
DX: R56.9 Unspecified convulsions (principal); Z53.29 Procedure and treatment not carried out because of patient's decision for other reasons; Z88.0 Allergy status to penicillin
CPT/HCPCS: 99282

== ENCOUNTER 2024-12-15 23:31 | Emergency (ER) | payer OTHER ==
[2024-12-16] MEDS ORDERED: HYDROCODONE/APAP 7.5/325 MG TAB ONE (00:24)
[2024-12-16] MEDS ORDERED: KETOROLAC 30 MG/ML INJ ONE (00:24)
[2024-12-16] MEDS ORDERED: dexAMETHasone 10 MG/ML VIAL ONE (00:24)
--- NOTE | 2024-12-16 01:06 | EDPHYS ---
Physician Documentation [facility] Name: Khadra Prescott Age: 64 yrs Sex: Female : 1960 Arrival Date: 12/15/2024 Time: 23:31 Bed DX1 Private MD: ED Physician Gustavo Reed HPI: 12/15 23:41 This 64 yrs old Female presents to ER via Unassigned with complaints of Wrist Pain. kb 23:41 Pt is a 64 year old female who presents for left wrist pain that started 3 days ago. kb Denies injury or trauma. STates the pain isn't improving so that is why she came for evaluation tonight. . Historical: - Allergies: 23:52 PENICILLINS; ha1 - PMHx: 23:52 Fibromyalgia; Seizures; ha1 - PSHx: 23:52 CARPAL TUNNEL SURGERY (2008); ha1 - Immunization history:: Adult Immunizations up to date. - Infectious Disease History:: Denies. - Social history:: Smoking status: Patient reports the use of cigarette tobacco products, smokes one pack cigarettes per day. ROS: 23:41 Constitutional: As per HPI kb Exam: 23:42 Constitutional: This is a well developed, well nourished patient who is awake, alert, kb and in no acute distress. Head/Face: Normocephalic, atraumatic. ENT: Moist Mucous membranes Cardiovascular: Regular rate Respiratory: Respirations even and unlabored. No increased work of breathing. Talking in full sentences Skin: Warm, dry with normal turgor. Normal color. Neuro: Awake and alert, GCS 15, oriented to person, place, time, and situation. 23:42 Musculoskeletal/extremity: Extremities: grossly normal except: noted in the left wrist: decreased ROM, pain, swelling, tenderness, ROM: limited active range of motion due to pain, Circulation is intact in all extremities. Sensation intact. Vital Signs: 23:48 BP 142 / 73; Pulse 68; Resp 18 S; Temp 97.6(T); Pulse Ox 97% on R/A; Weight 72.57 kg; ha1 Height 5 ft. 7 in. ; Pain 9/10; 12/16 01:10 BP 140 / 78; Pulse 65; Resp 18 S; Pulse Ox 99% on R/A; ha1 12/15 23:48 Body Mass Index 25.06 (72.57 kg, 170.18 cm) ha1 12/15 23:48 Pain Scale: Adult ha1 MDM: 12/15 23:36 Medical Screening Exam initiated 23:43 Data reviewed: vital signs, nurses notes. kb 12/16 01:05 Differential diagnosis: dislocation, open fracture, tendonitis, arthritis. Counseling: kb I had a detailed discussion with the patient and/or guardian regarding the historical points, exam findings, and any diagnostic results supporting the discharge/admit diagnosis, radiology results, the need for outpatient follow up, a orthopedic surgeon, to return to the emergency department if symptoms worsen or persist or if there are any questions or concerns that arise at home. 12/15 23:42 Order name: Wrist Left (3 View) XRAY kb Administered Medications: 00:44 Drug: Hydrocodone-Acetaminophen PO (7.5 mg-325 mg) 1 tabs PO once Route: PO; jb4 01:10 Follow up: Response: No adverse reaction; Pain is decreased; RASS: Alert and Calm (0) ha1 00:45 Drug: Dexamethasone IM 10 mg IM once Route: IM; Site: left deltoid; jb4 01:10 Follow up: Response: No adverse reaction ha1 00:45 Drug: Ketorolac IM 30 mg IM once Route: IM; Site: right deltoid; jb4 01:10 Follow up: Response: No adverse reaction; Pain is decreased ha1 Disposition: 19:16 Co-signature as Attending Physician, Gustavo Reed MD I agree with the assessment sp4 and plan of care. I reviewed the patient's care provided by the Advanced Practice Provider and agree with the diagnosis and treatment plan. Disposition Summary: 12/16/24 01:06 Discharge Ordered Notes: Location: Home Condition: Stable kb Diagnosis - Pain in left wrist kb Followup: kb - With: Emergency Department - When: As needed - Reason: Worsening of condition Followup: kb - With: Private Physician - When: 2 - 3 days - Reason: Recheck today's complaints, Continuance of care, Re-evaluation by your physician Discharge Instructions: - Discharge Summary Sheet kb - Musculoskeletal Pain kb - Wrist Pain, Adult, [id number] kb Forms: - Medication Reconciliation Form kb - Antibiotic Education kb - Prescription Opioid Use kb - Patient Portal Instructions kb - Leadership Thank You Letter kb Prescriptions: - Prednisone 20 mg Oral Tablet - take 1 tablet ORAL route once daily for 5 days; 5 tablet; Refills: 0, Product kb Selection Permitted - Diclofenac Sodium 75 mg Oral tablet, delayed release (enteric coated) - take 1 tablet ORAL route 2 times per day As needed; 30 tablet; Refills: 0, kb Product Selection Permitted Signatures: Dispatcher [employer] Elizabeth Arevalo FNP-C FNP-Ckb Bryson, James, RN RN jb4 Bere Sesay RN RN ha1 Gustavo Reed MD MD sp4
--- NOTE | 2024-12-16 01:06 | ER ---
Nurse's Notes [facility] Name: Khadra Prescott Age: 64 yrs Sex: Female : 1960 Arrival Date: 12/15/2024 Time: 23:31 Bed DX1 Private MD: Diagnosis: Pain in left wrist Presentation: 12/15 23:48 Chief complaint: Patient states: SUDDEN ONSET OF WRIST PAIN THAT STARTED THREE DAYS ha1 AGO. PAIN HAS GOTTEN WORSE. 23:48 Coronavirus screen: Client denies travel out of the [place] in the last 14 days. Ebola ha1 Screen: No symptoms or risks identified at this time. Initial Sepsis Screen: Does the patient meet any 2 criteria? RR > 20 per min. Does the patient have a suspected source of infection? No. Patient's initial sepsis screen is negative. Risk Assessment: Do you want to hurt yourself or someone else? Patient reports no desire to harm self or others. Onset of symptoms was December 15, 2024. 23:48 Method Of Arrival: Ambulatory ha1 23:48 Acuity: MARLENE 4 ha1 Triage Assessment: 23:52 General: Appears comfortable, Behavior is calm, cooperative. Pain: Complains of pain in ha1 left wrist Pain currently is 9 out of 10 on a pain scale. Neuro: Level of Consciousness is awake, alert, obeys commands, Oriented to person, place, time, situation. Cardiovascular: Capillary refill < 3 seconds Patient's skin is warm and dry. Respiratory: Airway is patent Respiratory effort is even, unlabored, Respiratory pattern is regular, symmetrical. GI: No signs and/or symptoms were reported involving the gastrointestinal system. Abdomen is round non-distended. Musculoskeletal: Circulation, motion, and sensation intact. Reports pain in left wrist. Historical: - Allergies: 23:52 PENICILLINS; ha1 - PMHx: 23:52 Fibromyalgia; Seizures; ha1 - PSHx: 23:52 CARPAL TUNNEL SURGERY (2008); ha1 - Immunization history:: Adult Immunizations up to date. - Infectious Disease History:: Denies. - Social history:: Smoking status: Patient reports the use of cigarette tobacco products, smokes one pack cigarettes per day. Screenin/27 00:00 [facility] ED Fall Risk Assessment (Adult) History of falling in the last 3 months, ha1 including since admission No falls in past 3 months (0 pts) Confusion or Disorientation No (0 pts) Intoxicated or Sedated No (0 pts) Impaired Gait No (0 pts) Mobility Assist Device Used No (0 pt) Altered Elimination No (0 pt) Score/Fall Risk Level 0 - 2 = Low Risk Oriented to surroundings, Maintained a safe environment, Hourly rounding (assess needs \T\ fall precautionary measures) done. Abuse screen: Denies threats or abuse. Denies injuries from another. Nutritional screening: No deficits noted. Tuberculosis screening: No symptoms or risk factors identified. Assessment: 12/15 23:48 Reassessment: SEE TRIAGE ASSESSMENT. ha1 12/16 01:45 Reassessment: Patient and/or family updated on plan of care and expected duration. Pain ha1 level reassessed. Patient is alert, oriented x 3, equal unlabored respirations, skin warm/dry/pink. Vital Signs: 12/15 23:48 BP 142 / 73; Pulse 68; Resp 18 S; Temp 97.6(T); Pulse Ox 97% on R/A; Weight 72.57 kg; ha1 Height 5 ft. 7 in. ; Pain 9/10; 12/16 01:10 BP 140 / 78; Pulse 65; Resp 18 S; Pulse Ox 99% on R/A; ha1 12/15 23:48 Body Mass Index 25.06 (72.57 kg, 170.18 cm) ha1 12/15 23:48 Pain Scale: Adult [facility] ED Course: 12/15 23:34 Patient arrived in ED. jj6 23:36 Elizabeth Stanley [facility]C [facility]. kb 23:36 Gustavo Reed MD is Attending Physician. kb 23:48 Patient has correct armband on for positive identification. Bed in low position. Call ha1 light in reach. Side rails up X 1. 23:52 Triage completed. ha1 12/16 00:00 Arm band placed on right wrist. ha1 00:04 Wrist Left (3 View) XRAY In Process Unspecified. EDMS 01:00 No provider procedures requiring assistance completed. Patient did not have IV access ha1 during this emergency room visit. Administered Medications: 00:44 Drug: Hydrocodone-Acetaminophen PO (7.5 mg-325 mg) 1 tabs PO once Route: PO; jb4 01:10 Follow up: Response: No adverse reaction; Pain is decreased; RASS: Alert and Calm (0) ha1 00:45 Drug: Dexamethasone IM 10 mg IM once Route: IM; Site: left deltoid; jb4 01:10 Follow up: Response: No adverse reaction ha1 00:45 Drug: Ketorolac IM 30 mg IM once Route: IM; Site: right deltoid; jb4 01:10 Follow up: Response: No adverse reaction; Pain is decreased ha1 Medication: 01:00 VIS not applicable for this client. ha1 Outcome: 01:06 Discharge ordered by MD. arriaga 01:45 Patient left the ED. ha1 01:45 Discharged to home ambulatory, ha1 01:45 Condition: stable 01:45 Discharge instructions given to patient, Instructed on discharge instructions, follow up and referral plans. Demonstrated understanding of instructions, follow-up care, medications, Prescriptions given X 2, Signatures: Dispatcher [employer] EDElizabeth Whalen FNP-C FNP-Jose Alberto Elliott, RN RN jb4 Annita Aparicio jj6 Bere Sesay, RN RN ha1
[2024-12-16 02:15] VITALS: BP 142/73; TEMP 97.6; O2SAT 97
--- NOTE | 2024-12-16 05:55 | RAD REPORT ---
CLINICAL HISTORY: Pain. COMPARISON: None. TECHNIQUE: XR WRIST 3 OR MORE VIEWS LEFT 12/15/2024 11:42 PM CDT FINDINGS: There is no fracture. Joint spaces are preserved. Soft tissues are unremarkable. IMPRESSION: No acute osseous findings. Electronically signed by: Wilber Lala MD 12/16/2024 12:54 AM CDT RP Due to temporary technical issues with the PACS/[email or web address] reporting system, reports are being renay d by the in-house radiologist without review as a courtesy to ensure prompt reporting the interpreting radiologist is fully responsible for the content of the report. Transcribed Date/Time: 12/16/2024 5:55 AM
== END 2024-12-16 01:45 | disposition home or self-care (01) ==
LOC: ER 23:31
DX: M25.532 Pain in left wrist (principal); F17.210 Nicotine dependence, cigarettes, uncomplicated
CPT/HCPCS: 73110; 96372; 99284; J1100